=== PATIENT | female | born 1995 | race Caucasian/White ===

== ENCOUNTER → 2023-05-14 15:15 | Outpatient (REF) | payer BC, SELFPAY | LOC: RAD 15:15 | PROVIDERS: ATTENDING PHYSICIAN Obstetrics & Gynecology; FAMILY PHYSICIAN Family Medicine | DX: R10.2 Pelvic and perineal pain (principal) | CPT/HCPCS: 76830; 76856 ==

== ENCOUNTER → 2023-10-22 16:55 | Outpatient (REF) | payer BC, SELFPAY | LOC: PNTC 16:55 | PROVIDERS: ATTENDING PHYSICIAN Obstetrics & Gynecology | DX: M35.00 Sjogren syndrome, unspecified (principal); O09.899 Supervision of other high risk pregnancies, unspecified trimester | CPT/HCPCS: 76801; 76813 ==

== ENCOUNTER → 2023-11-18 16:29 | Outpatient (REF) | payer BC, SELFPAY | LOC: PNTC 16:29 | PROVIDERS: ATTENDING PHYSICIAN Obstetrics & Gynecology | DX: M35.00 Sjogren syndrome, unspecified (principal); N85.5 Inversion of uterus; O71.2 Postpartum inversion of uterus | CPT/HCPCS: 76805 ==

== ENCOUNTER → 2023-12-18 09:10 | Outpatient (REF) | payer BC, SELFPAY | LOC: PNTC 09:10 | PROVIDERS: ATTENDING PHYSICIAN Obstetrics & Gynecology | DX: M35.00 Sjogren syndrome, unspecified (principal); Z34.82 Encounter for supervision of other normal pregnancy, second trimester | CPT/HCPCS: 76811 ==

== ENCOUNTER → 2024-01-15 17:01 | Outpatient (REF) | payer BC, SELFPAY | LOC: PNTC 17:01 | PROVIDERS: ATTENDING PHYSICIAN Obstetrics & Gynecology | DX: M35.00 Sjogren syndrome, unspecified (principal); N85.5 Inversion of uterus; O99.119 Other diseases of the blood and blood-forming organs and certain disorders involving the immune mechanism complicating pregnancy, unspecified trimester | CPT/HCPCS: 76816 ==

== ENCOUNTER → 2024-02-12 11:57 | Outpatient (REF) | payer BC, SELFPAY | LOC: PNTC 11:57 | PROVIDERS: ATTENDING PHYSICIAN Obstetrics & Gynecology | DX: O99.119 Other diseases of the blood and blood-forming organs and certain disorders involving the immune mechanism complicating pregnancy, unspecified trimester (principal); O71.2 Postpartum inversion of uterus | CPT/HCPCS: 76816 ==

== ENCOUNTER 2024-03-10 11:34 | Observation (INO) | payer BC, SELFPAY ==
[2024-03-10 12:13] LABS: Urine Albumin Negative (Neg - Trace); Urine Bilirubin Negative (Negative); Urine Character Clear (Clear); Urine Color Yellow; Urine Glucose Negative (Negative); Urine Ketone Negative (Negative); Urine Leukocyte Negative (Negative); Urine Nitrite Negative (Negative); Urine Occult Blood Negative (Negative); Urine Urobilinogen Negative (Neg - 1+)
[2024-03-10 12:18] LABS: % Basophils 0.8 % (0-2); % Eosinophils 1.1 % (0-6); % Immature Granulocytes 0.5 % (0-0.5); % Lymphocytes 29.1 % (20.5-51.1); % Neutrophils 57.5 % (42.2-75.2); Absolute Basophils 0.1 10^3/uL (0-0.2); Absolute Eosinophils 0.1 10^3/uL (0-0.7); Absolute Lymphocytes 1.8 10^3/uL (1.2-3.4); Absolute Monocytes 0.7 10^3/uL (0.1-0.6); Absolute Neutrophils 3.6 10^3/uL (1.4-6.5); Hematocrit 33.8 % (37.0-47.0); Hemoglobin 11.7 g/dL (12.0-16.0); Mean Corp Hgb Conc. 34.6 g/dL (33.0-37.0); Mean Corpuscular Hgb 29.1 pg (27.0-31.0); Mean Corpuscular Volume 84.1 fL (81.0-99.0); Mean Platelet Volume 9.2 fL (7.4-10.4); Nucleated Red Blood Cells % 0 %; Platelet Count 225 10^3/uL (130-400); Red Blood Cell Count 4.02 10^6/uL (4.20-5.40); Red Cell Dist. Width 12.7 % (11.5-14.5); White Blood Cell Count 6.3 10^3/uL (4.8-10.8)
[2024-03-10 12:21] VITALS: BP 107/56; BMI 29.8
[2024-03-10 12:40] LABS: ALT (SGPT) 16 U/L (0-35); AST (SGOT) 29 U/L (14-36); Albumin 3.6 g/dl (3.5-5.0); Alkaline Phosphatase 85 U/L (38-126); Blood Urea Nitrogen 9 mg/dl (7-17); Carbon Dioxide 22 mmol/L (22-30); Chloride 106 mmol/L (98-107); Estimated Creatinine Clearance > 125 ml/min; Glucose 69 mg/dl (70-99); Potassium 4.1 mmol/L (3.5-5.1); Sodium 134 mmol/L (135-145); Total Bilirubin 0.3 mg/dl (0.2-1.3); Total Protein 6.5 g/dl (6.3-8.2); eGFR > 60.00
[2024-03-10 12:47] LABS: Protein/creatinine Ratio 0.3; Urine Protein 12 mg/dl
[2024-03-10 13:30] LABS: Uric Acid 3.6 mg/dl (2.5-6.2)
== END 2024-03-10 14:00 | disposition home or self-care (01) ==
LOC: PNTC-IN 11:34
PROVIDERS: ADMITTING PHYSICIAN Obstetrics & Gynecology; ATTENDING PHYSICIAN Obstetrics & Gynecology
DX: H53.8 Other visual disturbances (principal); O26.893 Other specified pregnancy related conditions, third trimester; Z3A.32 32 weeks gestation of pregnancy; Z87.59 Personal history of other complications of pregnancy, childbirth and the puerperium
CPT/HCPCS: 59025; 76816; 80053; 81003; 82570; 84156; 84550; 85025; G0378

== ENCOUNTER → 2024-03-17 07:27 | Outpatient (REF) | payer BC, SELFPAY | LOC: PNTC 07:27 | PROVIDERS: ATTENDING PHYSICIAN Obstetrics & Gynecology | DX: M35.00 Sjogren syndrome, unspecified (principal); O99.891 Other specified diseases and conditions complicating pregnancy; O34.53 Maternal care for retroversion of gravid uterus | CPT/HCPCS: 59025; 76815 ==

== ENCOUNTER → 2024-03-23 16:01 | Outpatient (REF) | payer BC, SELFPAY | LOC: PNTC 16:01 | PROVIDERS: ATTENDING PHYSICIAN Obstetrics & Gynecology | DX: M35.00 Sjogren syndrome, unspecified (principal); N85.5 Inversion of uterus | CPT/HCPCS: 59025; 76815 ==

== ENCOUNTER → 2024-03-31 16:58 | Outpatient (REF) | payer BC, SELFPAY | LOC: PNTC 16:58 | PROVIDERS: ATTENDING PHYSICIAN Obstetrics & Gynecology | DX: M35.00 Sjogren syndrome, unspecified (principal); N85.5 Inversion of uterus | CPT/HCPCS: 59025; 76815 ==

== ENCOUNTER → 2024-04-07 17:06 | Outpatient (REF) | payer BC, SELFPAY | LOC: PNTC 17:06 | PROVIDERS: ATTENDING PHYSICIAN Obstetrics & Gynecology | DX: Z87.59 Personal history of other complications of pregnancy, childbirth and the puerperium (principal); O99.119 Other diseases of the blood and blood-forming organs and certain disorders involving the immune mechanism complicating pregnancy, unspecified trimester | CPT/HCPCS: 59025; 76816 ==

== ENCOUNTER → 2024-04-14 17:02 | Outpatient (REF) | payer BC, SELFPAY | LOC: PNTC 17:02 | PROVIDERS: ATTENDING PHYSICIAN Obstetrics & Gynecology | DX: O99.119 Other diseases of the blood and blood-forming organs and certain disorders involving the immune mechanism complicating pregnancy, unspecified trimester (principal); Z87.59 Personal history of other complications of pregnancy, childbirth and the puerperium | CPT/HCPCS: 59025; 76815 ==

== ENCOUNTER → 2024-04-21 16:57 | Outpatient (REF) | payer BC, SELFPAY | LOC: PNTC 16:57 | PROVIDERS: ATTENDING PHYSICIAN Obstetrics & Gynecology | DX: M35.00 Sjogren syndrome, unspecified (principal); O34.53 Maternal care for retroversion of gravid uterus | CPT/HCPCS: 59025; 76815 ==

== ENCOUNTER → 2024-04-28 16:59 | Outpatient (REF) | payer BC, SELFPAY | LOC: PNTC 16:59 | PROVIDERS: ATTENDING PHYSICIAN Obstetrics & Gynecology | DX: M35.00 Sjogren syndrome, unspecified (principal); Z87.59 Personal history of other complications of pregnancy, childbirth and the puerperium; O09.299 Supervision of pregnancy with other poor reproductive or obstetric history, unspecified trimester | CPT/HCPCS: 59025; 76815 ==

== ENCOUNTER 2024-04-29 03:21 | Inpatient (IN) | payer BC, SELFPAY ==
[2024-04-29 03:34] VITALS: BP 134/86; BMI 31.4
[2024-04-29] MEDS: LR 1000 IV ×2 (03:35→06:56)
[2024-04-29 03:52] LABS: % Basophils 0.4 % (0-2); % Immature Granulocytes 0.4 % (0-0.5); % Lymphocytes 19.1 % (20.5-51.1); % Monocytes 7.4 % (1.7-9.3); % Neutrophils 71.7 % (42.2-75.2); Absolute Eosinophils 0.1 10^3/uL (0-0.7); Absolute Lymphocytes 2.1 10^3/uL (1.2-3.4); Absolute Monocytes 0.8 10^3/uL (0.1-0.6); Hematocrit 35.1 % (37.0-47.0); Hemoglobin 11.6 g/dL (12.0-16.0); Mean Corpuscular Hgb 26.7 pg (27.0-31.0); Mean Corpuscular Volume 80.7 fL (81.0-99.0); Mean Platelet Volume 9.2 fL (7.4-10.4); Nucleated Red Blood Cells % 0 %; Platelet Count 261 10^3/uL (130-400); Red Blood Cell Count 4.35 10^6/uL (4.20-5.40); Red Cell Dist. Width 12.8 % (11.5-14.5); White Blood Cell Count 11.2 10^3/uL (4.8-10.8)
[2024-04-29] MEDS: SUBLIMAZE 100 MCG EPIDURAL (04:11)
[2024-04-29] MEDS: FENTANYL/BUPIVACAINE 100 EPIDURAL (04:12)
[2024-04-29] MEDS: PITOCIN 30 UNITS/NSS 500 ML IV (11:28)
[2024-04-29] MEDS: TYLENOL 650 MG PO ×2 (12:18→20:38)
[2024-04-29] MEDS: SENOKOT-S 1 TABLET PO (15:23)
[2024-04-29] MEDS: MOTRIN 600 MG PO ×2 (15:23→22:54)
[2024-04-29] MEDS: PEPCID 20 MG PO (20:39)
[2024-04-30] MEDS: TYLENOL 650 MG PO ×2 (03:36→14:41)
[2024-04-30 04:12] LABS: Hematocrit 23.9 % (37.0-47.0)
[2024-04-30] MEDS: MOTRIN 600 MG PO ×2 (06:01→14:42)
[2024-04-30] MEDS: FEOSOL 325 MG PO (08:00)
[2024-04-30] MEDS: PLAQUENIL 400 MG PO (08:46)
[2024-04-30] MEDS: ZOLOFT 25 MG PO (08:48)
[2024-04-30] MEDS: SENOKOT-S 1 TABLET PO (08:48)
[2024-04-30] MEDS: PEPCID 20 MG PO (08:48)
[2024-04-30] MEDS: PRENATAL PLUS 1 TABLET PO (08:48)
[2024-05-01 10:53] LABS: Syphilis/T. pallidum Ab Reflex Negative (Negative)
== END 2024-04-30 18:45 | disposition home or self-care (01) | DRG 807 ==
LOC: LDRP 03:21
PROVIDERS: Student in an Organized Health Care Education/Training Program; ADMITTING PHYSICIAN Obstetrics & Gynecology
PROC: 10907ZC Drainage of Amniotic Fluid, Therapeutic from Products of Conception, Via Natural or Artificial Opening (ICD-10-PCS; 2024-04-29)
PROC: 0KQM0ZZ Repair Perineum Muscle, Open Approach (ICD-10-PCS; 2024-04-29)
PROC: 10E0XZZ Delivery of Products of Conception, External Approach (ICD-10-PCS; 2024-04-29)
PROC: 0UQMXZZ Repair Vulva, External Approach (ICD-10-PCS; 2024-04-29)
DX: O77.0 Labor and delivery complicated by meconium in amniotic fluid (principal); Z37.0 Single live birth; Z3A.39 39 weeks gestation of pregnancy; O70.1 Second degree perineal laceration during delivery; O69.81X0 Labor and delivery complicated by cord around neck, without compression, not applicable or unspecified; O71.82 Other specified trauma to perineum and vulva; O99.344 Other mental disorders complicating childbirth; F32.A Depression, unspecified
CPT/HCPCS: 88307; 36415; 85014; 85018; 85025; 86780; 86850; 86900; 86901